=== PATIENT | female | born 2000 | race Hispanic/Latino ===

== ENCOUNTER 2020-06-17 00:03 | Emergency (ER) | payer SELFPAY ==
[2020-06-17 00:07] VITALS: BP 125/73; PULSE 102; RESP 18; TEMP 36.7; O2SAT 100
[2020-06-17 01:00] VITALS: BP 127/82; PULSE 98; RESP 17; O2SAT 99
--- NOTE | 2020-06-17 02:29 | ED.WOUNDLAC ---
HPI - Wound/Laceration General Chief Complaint: Wound/Laceration Stated Complaint: cut right ankle Time Seen by Provider: 06/17/20 02:29 Source: patient Mode of arrival: ambulatory Limitations: no limitations History of Present Illness HPI narrative: Patient is a 19-year-old female who presents for evaluation of wound to her right ankle. Patient states that she tripped over a year, hitting her foot and ankle against the mirror causing it to break. Patient has 2 cuts to her ankle. She denies any pain. No active bleeding. Patient does not know she is up-to-date on her tetanus. No other cuts, injuries. No fall or loss of consciousness. Related Data Home Medications Medication Instructions Recorded Confirmed No Home Medications 06/17/20 06/17/20 Allergies Allergy/AdvReac Type Severity Reaction Status Date / Time No Known Allergies Allergy Verified 06/17/20 00:04 Review of Systems Review of Systems: Narrative: CONSTITUTIONAL: Denies fever CARDIOVASCULAR: Denies chest pain RESPIRATORY: Denies cough or dyspnea. GASTROINTESTINAL: Denies abdominal pain SKIN: Denies rash, reports right ankle laceration MUSCULOSKELETAL: Denies back pain NEUROLOGIC: Denies headache [facility] Past Medical History Medical History (Updated 06/17/20 @ 03:21 by Loretta Gonzales MD) No pertinent past medical history Surgical History Surgical History (Updated 06/17/20 @ 03:15 by Loretta Gonzales MD) No pertinent past surgical history Social History Social History (Updated 06/17/20 @ 03:15 by Loretta Gonzales MD) Smoking status: Never smoker Alcohol intake: current Alcohol use details: Social Substance use: never Gender identity (if verbalized by the patient): Female Exam Narrative: Exam Narrative: GENERAL: Awake, alert, conversant HEAD: Normocephalic, atraumatic. EYES: PERRLA and EOMI. ENT: Nares clear, no rhinorrhea or epistaxis. Mucous membranes moist. NECK: Supple. CHEST: No respiratory distress, breathing even and non labored HEART: Regular rate, sinus rhythm ABDOMEN:Non distended, non tender EXTREMITIES: Normal range of motion. No edema. SKIN: Warm, dry, no rash. 2 cm superficial linear laceration to the right lateral ankle, 1 cm superficial flap laceration, irregular border to the anterior aspect of the top of the right foot, right ankle NEURO:No focal deficits. Alert and oriented x3 Course Vital Signs Vital signs: Vital Signs Temperature 36.7 C 06/17/20 00:07 Pulse Rate 102 H 06/17/20 00:07 Respiratory Rate 18 06/17/20 00:07 Blood Pressure 125/73 06/17/20 00:07 Pulse Oximetry 100 06/17/20 00:07 Temperature 36.7 C 06/17/20 00:07 Pulse Rate 102 H 06/17/20 00:07 Respiratory Rate 18 06/17/20 00:07 Blood Pressure 125/73 06/17/20 00:07 Pulse Oximetry 100 06/17/20 00:07 Procedures Laceration Laceration 1: Date: 06/17/20 Time: 03:17 Site: lower extremity Side (If applicable): right Size (cm): 2 Description: linear Depth: simple, single layer Local Anesthetic: lidocaine 1% and with epi Amount of anesthesia used (mL): 3 Pre-repair: wound explored and irrigated ====== Skin Level ====== Skin layer closed with: prolene Number of sutures: 5 Technique: simple, interrupted ====== Subcutaneous Layer ====== ====== Muscle Layer ====== ====== Tendon Layer ====== Laceration 2: Date: 06/17/20 Time: 03:18 Site: lower extremity Side (If applicable): right Size (cm): 1 Description: flap and irregular Depth: simple, single layer Local Anesthetic: lidocaine 1% and with epi Amount of anesthesia used (mL): 3 Pre-repair: wound explored and irrigated ====== Skin Level ====== Skin layer closed with: prolene Size (cm): 5-0 Number of sutures: 5 Technique: simple, interrupted
[2020-06-17 03:00] VITALS: BP 120/77; PULSE 88; RESP 14; O2SAT 99
[2020-06-17] MEDS: TETANUS,DIPHTHERIA,AC PERTUSSIS ADULT (0.5 ML) BOOSTRIX IM (03:25)
[2020-06-17 05:00] VITALS: BP 118/69; PULSE 100; RESP 20; O2SAT 97
== END 2020-06-17 05:00 | disposition home or self-care (01) ==
PROVIDERS: Emergency Provider Emergency Medicine; PCP Family Medicine
DX: S91.011A Laceration without foreign body, right ankle, initial encounter (principal); W18.02XA Striking against glass with subsequent fall, initial encounter; Z23 Encounter for immunization
CPT/HCPCS: 12002; 90715; 99282

== ENCOUNTER 2020-11-11 11:23 | Emergency (ER) | payer OTHER, SELFPAY ==
[2020-11-11 11:37] VITALS: BP 116/79; PULSE 83; RESP 18; TEMP 36.7; O2SAT 100
--- NOTE | 2020-11-11 11:46 | ED.GENADULT ---
HPI - General Adult General Chief complaint: Extremity Injury, Upper Stated complaint: Finger Pain Time Seen by Provider: 11/11/20 11:46 Source: patient and RN notes reviewed Mode of arrival: ambulatory Limitations: no limitations History of Present Illness HPI narrative: 20-year-old female presents with complaints of RT 3rd (middle) finger swelling, warmth, tenderness, and redness for the past 2 days. Sugey reports redness, swelling, warmth, and tenderness started after clipping her fingernails, symptoms continue to increase daily. No treatment. Denies numbness or tingling. No weakness of finger. Denies fever or chills. Denies immobility. Exacerbation is movement and palpation of finger. No relieving factors. Denies break in skin or drainage. Dominant hand is the RIGHT HAND. Tetanus is up-to-date. LMP 10/25/20. Remains active. The patient reports she have not been diagnosed with COVID-19. The patient reports she is not waiting for the results of a COVID-19 lab test. The patient reports she do not have fever, weakness, or fatigue. The patient reports she do not have a new or worsening cough or shortness of breath. Denies chest pain. The patient reports she do not have any rhinorrhea, congestion, sore throat, loss of taste, nausea, vomiting, abdominal pain, and diarrhea. Tolerating po intake well. Denies recent traveling. Denies concerns for COVID-19 or exposures been home with limited outdoor exposure except for essential household needs, work, and return home. At this time, patient is not suspected of having COVID-19. Some parts of this dictation were generated by voice recognition software and may contain typographical and/or grammatical inaccuracies. Related Data Allergies Allergy/AdvReac Type Severity Reaction Status Date / Time No Known Allergies Allergy Verified 11/11/20 11:31 Review of Systems Review of Systems: Narrative: CONSTITUTIONAL: Denies fever, chills, sweats. EYES: Denies visual changes, redness, discharge. ENT: Denies rhinorrhea, congestion, sore throat, otalgia. CARDIOVASCULAR: Denies chest pain, palpitations, edema. RESPIRATORY: Denies dyspnea, wheezing, cough. GASTROINTESTINAL: Denies abdominal pain, nausea, vomiting, diarrhea. SKIN: Denies rash or itching. Complains of RT 3rd (middle) finger swelling, warmth, tenderness, and redness. MUSCULOSKELETAL: Denies acute back pain or myalgia. Complains of RT 3rd (middle) finger with warmth, pain, redness, and swelling. NEUROLOGIC: Denies numbness, or focal weakness. PSYCHIATRIC: Denies anxiety or depression. All other systems reviewed are negative, except as documented in HPI and below. [facility] Past Medical History Medical History No pertinent past medical history Surgical History Surgical History No pertinent past surgical history Family History Family History (Updated 11/11/20 @ 12:17 by LIEN Solares) Father Alive and well Mother Diabetes mellitus Social History Social History (Updated 11/11/20 @ 12:16 by LIEN Solares) Smoking status: Never smoker Tobacco type: cigarettes Second hand tobacco smoke exposure: No Alcohol intake: never Substance use: never Living arrangements: with family Occupation/Education: occupation Gender identity (if verbalized by the patient): Female Comments At time of signature, agree with nurse past medical, surgical, social, and family history. There is no relevant family history pertinent to the presenting complaint. Exam Narrative: Exam Narrative: GENERAL: This is a well-nourished, well-developed patient, in no apparent distress. HEAD: Normocephalic, atraumatic. EYES: PERRL. Sclera clear/white. Vision is grossly intact. NECK: Neck supple, non-tender without lymphadenopathy, masses or thyromegaly. CARDIOVASCULAR: Regular rate and rhythm without murmu
== END 2020-11-11 12:13 | disposition home or self-care (01) ==
PROVIDERS: Emergency Provider Nurse Practitioner Family
DX: L03.011 Cellulitis of right finger (principal)
CPT/HCPCS: 10060; 87070; 87147; 87186; 87205; 99213; G0463

== ENCOUNTER 2023-02-06 20:28 | Emergency (ER) | payer OTHER, SELFPAY ==
--- NOTE | ~2023-02-06 | XR_ITS ---
EXAMINATION: XR chest 2V DATE: 02/06/2023 21:10 INDICATION: 2 days of left-sided chest pain TECHNIQUE: PA and lateral views of the chest were obtained. COMPARISON: None FINDINGS: The lungs are clear with no focal airspace opacities, pulmonary edema, pleural effusion or pneumothor ax. The cardiomediastinal silhouette is normal. Visualized bones and soft tissues are unremarkable. IMPRESSION: 1. Normal chest radiograph. Reviewed, dictated and finalized at location A. IMPRESSION: 1. Normal chest radiograph.
[2023-02-06 20:29] VITALS: BP 134/98; PULSE 95; RESP 16; TEMP 36.9; O2SAT 100
--- NOTE | 2023-02-06 20:29 | ECG_ITS ---
Measurements Intervals [place] Rate: 92 P: 51 WI: 144 QRS: 61 QRSD: 86 T: 23 QT: 335 QTc: 415 Interpretive Statements SINUS RHYTHM WITHIN NORMAL LIMITS NO PREVIOUS ECG AVAILABLE FOR COMPARISON Electronically Signed On 02-07-2023 10:36:22 CDT by Keven Garcia M.D.
--- NOTE | 2023-02-06 20:54 | ED.CHESTPAIN ---
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 Pt reports the pain as sharp substernal chest pain that radiates to the left anterior chest and down her ribs. Reports pain occurs approximately 10 times per day, lasts a few seconds, and can occur even while sitting or walking. She has not noticed any patterns when her pain starts. Nothing makes it better or worse. She denies history of VTE, hormone use, recent surgeries or hospitalizations. Denies history of anxiety, however she does report increased generalized stress in her life. Denies SI/HI. She denies dyspnea, cough, congestion, headache, vision changes, fever, body aches, chills, abdominal pain, nausea, vomiting, diarrhea, leg swelling, trauma <BRIE Ochoa Last Filed: 02/06/23 22:57> Related Data Allergies/Adverse Reactions: Allergies Allergy/AdvReac Type Severity Reaction Status Date / Time No Known Allergies Allergy Verified 02/06/23 20:29 <BRIE Ochoa Last Filed: 02/06/23 22:57> Review of Systems Review of Systems: CONSTITUTIONAL: Denies fever, chills EYES: Denies visual changes, redness, or discharge. ENT: Denies rhinorrhea, congestion, sore throat, or otalgia. CARDIOVASCULAR: See HPI RESPIRATORY: Denies cough or dyspnea. GASTROINTESTINAL: Denies abdominal pain, nausea, vomiting, or diarrhea. GENITOURINARY: Denies dysuria or hematuria. SKIN: Denies rash or itching. MUSCULOSKELETAL: Denies back pain, joint pain, or myalgia. NEUROLOGIC: Denies headache, numbness, dizziness, or weakness. PSYCHIATRIC: See HPI <Winsome Fletcher PA-C - Last Filed: 02/06/23 22:57> [facility] Past Medical History Medical History: Medical History No pertinent past medical history <Winsome Fletcher PA-C - Last Filed: 02/06/23 22:57> Surgical History Surgical History: Surgical History No pertinent past surgical history <Winsome Fletcher PA-C - Last Filed: 02/06/23 22:57> Family History Family History: Family History Father Alive and well Mother Diabetes mellitus <Winsome Fletcher PA-C - Last Filed: 02/06/23 22:57> Social History Social History: Social History Smoking status: Never smoker Tobacco type: cigarettes Second hand tobacco smoke exposure: No Alcohol intake: never Alcohol use details: Social Substance use: never Living arrangements: with family Occupation/Education: occupation Gender identity (if verbalized by the patient): Female <Winsome Fletcher PA-C - Last Filed: 02/06/23 22:57> Exam Narrative: GENERAL: Well-appearing, well-nourished, and in no acute distress. Patient resting comfortably in the exam bed. She is pleasant and conversational. HEAD: Normocephalic, atraumatic. EYES: PERRLA and EOMI. ENT: Nares clear, no rhinorrhea or epistaxis. Mucous membranes moist. Oropharynx without tonsillar hypertrophy exudate or other lesions. NECK: Supple. No adenopathy or masses. CHEST: Clear to auscultation. No respiratory distress. No wheezes rales or rhonchi. Tenderness to the left sternal chest wall extending down to be lateral and inferior ribs. No overlying skin changes other than a silver scaly and erythematous plaque to the left anterior chest wall inferior to where the patient is tender. HEART: Regular rate and rhythm. No murmur heard. No
[2023-02-06] MEDS: ACETAMINOPHEN 500 MG TABLET 1000 MG PO (21:01)
[2023-02-06] MEDS: IBUPROFEN 600 MG TABLET PO (21:02)
--- NOTE | 2023-02-06 21:10 | PC.NURSE ---
Pt states she is unable to urinate at this time
[2023-02-06 21:11] LABS: Basophils Absolute Auto 0.1 K/mm3 (0.0-0.1); Basophils Percent Auto 0.8 % (0.2-1.2); Eosinophils Absolute Auto 0.1 K/mm3 (0-0.3); Eosinophils Percent Auto 0.9 % (0-4.4); Hematocrit 40.1 % (37.0-47.0); Hemoglobin 13.5 g/dL (12.0-15.0); Immature Granulocyte Absolute 0.01 K/mm3 (0.00-0.031); Immature Granulocyte Percent A 0.1 % (0-0.5); Lymphocytes Absolute Auto 1.55 K/mm3 (0.9-3.2); Lymphocytes Percent Auto 20.5 % (18.3-44.2); Mean Corpuscular HGB Conc 33.7 g/dl (32-36); Mean Corpuscular Hemoglobin 30.6 pg (26-34); Mean Corpuscular Volume 90.9 fl (80-100); Mean Platelet Volume 10.2 fl (7.4-10.4); Monocytes Absolute Auto 0.9 K/mm3 (0.1-0.6); Monocytes Percent Auto 11.2 % (2.6-8.5); Neutrophils Percent Auto 66.5 % (45.5-73.1); Platelet Count Result 235 k/mm3 (150-375); Red Blood Count 4.41 M/mm3 (4.2-5.4); Red Cell Distribution Width 12.5 % (11.5-14.5); White Blood Count 7.6 K/mm3 (4.5-10.0)
[2023-02-06 21:21] LABS: Alanine Aminotransferase 31 U/L (6-35); Albumin Level 4.7 g/dL (3.5-5.1); Alkaline Phosphatase 60 U/L (38-126); Anion Gap 7 mmol/L (8-16); Aspartate Amino Transferase 41 U/L (14-36); Bilirubin,Total 0.7 mg/dL (0.2-1.3); Blood Urea Nitrogen 11 mg/dL (7-17); Calcium 9.2 mg/dL (8.4-10.2); Carbon Dioxide 27 mmol/L (22-30); Chloride 104 mmol/L (98-107); Estimated CRCL calculation 93 ml/min; Estimated Glomerular Filt Rate > 60; Glucose 109 mg/dL (65-110); Potassium 3.4 mmol/L (3.4-5.0); Sodium 138 mmol/L (137-145)
[2023-02-06 21:32] LABS: NT Pro B Type Natriuretic Pept < 20 pg/mL (19.9-100); Troponin I < 0.012 ng/mL (0.000-0.034)
[2023-02-06 21:41] LABS: D Dimer 0.36 ug/mL (<0.48)
[2023-02-06 22:33] VITALS: BP 104/71; PULSE 70; RESP 18; O2SAT 97
== END 2023-02-06 22:53 | disposition home or self-care (01) ==
PROVIDERS: Emergency Provider Physician Assistant
DX: R07.89 Other chest pain (principal)
CPT/HCPCS: 36415; 71046; 80053; 81025; 83880; 84484; 85025; 85380; 93005; 99284; A9270